=== PATIENT | male | born 1985 | race Caucasian/White ===

== ENCOUNTER 2018-09-18 20:14 | Emergency (ER) | payer OTHER ==
[~2018-09-18] VITALS: Ht 175.3 cm; Wt 81.7 kg
[2018-09-18] MEDS ORDERED: IBUPROFEN 200200 M1 (21:15)
[2018-09-18 21:22] LABS: URINE BILIRUBIN 1+ (Negative); URINE BLOOD TRACE (Negative); URINE CLARITY CLEAR; URINE COLOR YELLOW; URINE GLUCOSE-RANDOM* NEGATIVE (Negative); URINE KETONES NEGATIVE (Negative); URINE LEUKOCYTES NEGATIVE (Negative); URINE NITRITE NEGATIVE (Negative); URINE PROTEIN (DIPSTICK) NEGATIVE (Negative); URINE SPECIFIC GRAVITY 1.025 (1.005-1.035); URINE UROBILINOGEN 0.2 E.U./dl (0.2-1.0)
[2018-09-18 21:25] LABS: ICTOTEST (BILI CONFIRMATORY) Positive (Negative)
[2018-09-18 22:24] LABS: ABSOLUTE NEUTROPHILS 7.3 thou/uL (1.4-8.2); BASOPHILS 1.5 % (0.0-2.0); EOSINOPHILS 0.9 % (0.0-3.0); HEMOGLOBIN 13.7 gm/dL (14.0-18.0); LYMPHOCYTES 28.4 % (24.0-44.0); MCH 30.7 pg (26.0-34.0); MCV 87.8 fL (80.0-100.0); MONOCYTES 7.6 % (1.0-8.0); PLATELET COUNT 414 thou/uL (150-400); POLYS 61.6 % (36.0-66.0); RBC 4.44 mil/uL (4.50-6.00); RDW 12.7 % (10.5-14.5); WBC 11.8 thou/uL (4.0-11.0)
[2018-09-18 22:34] LABS: CALCIUM 9.8 mg/dL (8.5-10.1); CREATININE 1.1 mg/dL (0.7-1.3); POTASSIUM 3.5 mmol/L (3.5-5.1)
[2018-09-18 22:41] LABS: ALBUMIN 3.6 g/dL (3.4-5.0); TOTAL BILIRUBIN 0.4 mg/dL (<0.1-1.0)
[2018-09-19] MEDS ORDERED: FLEXERIL PO (00:24)
[2018-09-19 00:35] VITALS: BP 132/76
== END 2018-09-19 00:45 | disposition home or self-care (01) ==
LOC: ER 20:14
PROVIDERS: Student in an Organized Health Care Education/Training Program
DX: M54.6 Pain in thoracic spine (principal); R10.11 Right upper quadrant pain

== ENCOUNTER 2020-10-27 09:58 | Emergency (ER) | payer BC ==
[~2020-10-27] VITALS: Ht 180.3 cm; Wt 102.1 kg
[~2020-10-27 09:58] MED LIST: FLEXERIL PO; IBUPROFEN 200200 M1
[2020-10-27 11:00] VITALS: BP 168/98
[2020-10-27] MEDS ORDERED: KEFLEX500 M1 PO (11:09)
[2020-10-27] MEDS ORDERED: NAPROSYN500 MG PO (11:09)
[2020-10-27] MEDS ORDERED: NORCO5 PO (11:09)
== END 2020-10-27 11:21 | disposition home or self-care (01) ==
LOC: ER 09:58
DX: L03.116 Cellulitis of left lower limb (principal); I10 Essential (primary) hypertension; Z79.1 Long term (current) use of non-steroidal anti-inflammatories (NSAID)

== ENCOUNTER 2021-05-13 19:01 | Emergency (ER) | payer OTHER ==
[~2021-05-13] VITALS: Ht 180.3 cm; Wt 99.8 kg
[~2021-05-13 19:01] MED LIST changes: +KEFLEX500 M1 PO; +NAPROSYN500 MG PO; +NORCO5 PO
[2021-05-13 21:17] VITALS: BP 156/97
== END 2021-05-13 21:18 | disposition home or self-care (01) ==
LOC: ER 19:01
DX: M25.532 Pain in left wrist (principal); R20.2 Paresthesia of skin; M25.522 Pain in left elbow